=== PATIENT | female | born 1980 | race Caucasian/White ===

== ENCOUNTER 2017-07-06 14:40 | Emergency (ER) | payer OTHER ==
[~2017-07-06] VITALS: Ht 160 cm; Wt 83.9 kg
[~2017-07-06 14:40] MED LIST: BACTRIM DS TAB1 EACH PO; NAPROSYN500 MG PO; NOHOMEMEDICATIONS; NORCO 5-325 TA1 EACH PO; PENICILLIN VK500 M1 PO; ULTRAM 50MG TAB50 MG PO
[2017-07-06 15:15] LABS: URINE BILIRUBIN NEGATIVE (Negative); URINE BLOOD NEGATIVE (Negative); URINE COLOR YELLOW; URINE GLUCOSE-RANDOM* NEGATIVE (Negative); URINE KETONES NEGATIVE (Negative); URINE LEUKOCYTES-REFLEX NEGATIVE (Negative); URINE PROTEIN (DIPSTICK) NEGATIVE (Negative); URINE SPECIFIC GRAVITY <= 1.005 (1.005-1.035); URINE UROBILINOGEN 0.2 E.U./dl (0.2-1.0)
[2017-07-06 15:40] LABS: ABSOLUTE NEUTROPHILS 9.3 thou/uL (1.4-8.2); BASOPHILS 0.2 % (0.0-2.0); EOSINOPHILS 0.7 % (0.0-3.0); HEMATOCRIT 37.9 % (37.0-47.0); HEMOGLOBIN 13.2 gm/dL (12.0-15.0); LYMPHOCYTES 11.9 % (24.0-44.0); MCH 30.3 pg (26.0-34.0); MCHC 34.7 g/dL (28.0-37.0); MCV 87.3 fL (80.0-100.0); MONOCYTES 8.2 % (1.0-8.0); PLATELET COUNT 200 thou/uL (150-400); RBC 4.34 mil/uL (4.20-5.00); RDW 12.4 % (10.5-14.5); WBC 11.7 thou/uL (4.0-11.0)
[2017-07-06 15:41] LABS: MANUAL DIFF NO
[2017-07-06 15:48] LABS: CALCIUM 9.6 mg/dL (8.5-10.1); CREATININE 0.5 mg/dL (0.6-1.0)
[2017-07-06] MEDS ORDERED: BACTRIM DS TAB1 EACH PO (16:18)
[2017-07-06 17:50] VITALS: BP 98/72
== END 2017-07-06 17:55 | disposition home or self-care (01) ==
LOC: ER 14:40
PROVIDERS: Emergency Medicine
DX: L05.01 Pilonidal cyst with abscess (principal); L03.317 Cellulitis of buttock; J45.909 Unspecified asthma, uncomplicated; G43.909 Migraine, unspecified, not intractable, without status migrainosus; F17.210 Nicotine dependence, cigarettes, uncomplicated; Z90.49 Acquired absence of other specified parts of digestive tract; Z90.89 Acquired absence of other organs

== ENCOUNTER 2017-07-09 16:13 | Emergency (ER) | payer BC, OTHER ==
[~2017-07-09] VITALS: Ht 160 cm; Wt 83.9 kg
[2017-07-09] MEDS ORDERED: NORCO 5-325 TA1 EACH PO (17:45)
[2017-07-09] MEDS ORDERED: IBUPROFEN 600600 M1 PO (17:45)
[2018-03-09] MEDS ORDERED: PHENAZOPYRIDIN200 M2 PO (13:38)
[2018-03-09] MEDS ORDERED: NORCO 5-325 TA1 EACH PO (13:38)
== END 2017-07-09 18:18 | disposition home or self-care (01) ==
LOC: ER 16:13
DX: L02.31 Cutaneous abscess of buttock (principal); J45.909 Unspecified asthma, uncomplicated; G43.909 Migraine, unspecified, not intractable, without status migrainosus; Z90.49 Acquired absence of other specified parts of digestive tract; Z90.89 Acquired absence of other organs; Z88.5 Allergy status to narcotic agent; Z88.0 Allergy status to penicillin

== ENCOUNTER 2018-11-08 13:30 | Emergency (ER) | payer BC, OTHER ==
[~2018-11-08] VITALS: Ht 157.5 cm; Wt 81.7 kg
[~2018-11-08 13:30] MED LIST changes: +IBUPROFEN 600600 M1 PO; +PHENAZOPYRIDIN200 M2 PO
[2018-11-08 14:07] LABS: ABSOLUTE NEUTROPHILS 4.9 thou/uL (1.4-8.2); BASOPHILS 0.6 % (0.0-2.0); EOSINOPHILS 0.6 % (0.0-3.0); HEMATOCRIT 39.2 % (37.0-47.0); HEMOGLOBIN 13.6 gm/dL (12.0-15.0); LYMPHOCYTES 21.5 % (24.0-44.0); MCH 30.3 pg (26.0-34.0); MCHC 34.8 g/dL (28.0-37.0); MCV 87.2 fL (80.0-100.0); MONOCYTES 8.1 % (1.0-8.0); PLATELET COUNT 233 thou/uL (150-400); POLYS 69.2 % (36.0-66.0); RBC 4.49 mil/uL (4.20-5.00); RDW 12.5 % (10.5-14.5)
[2018-11-08 14:07] LABS: URINE BILIRUBIN NEGATIVE (Negative); URINE BLOOD NEGATIVE (Negative); URINE CLARITY CLEAR; URINE COLOR YELLOW; URINE GLUCOSE-RANDOM* NEGATIVE (Negative); URINE KETONES NEGATIVE (Negative); URINE LEUKOCYTES NEGATIVE (Negative); URINE NITRITE NEGATIVE (Negative); URINE PROTEIN (DIPSTICK) NEGATIVE (Negative); URINE SPECIFIC GRAVITY 1.015 (1.005-1.035)
[2018-11-08 14:14] LABS: CALCIUM 9.6 mg/dL (8.5-10.1); CREATININE 0.7 mg/dL (0.6-1.0); POTASSIUM 3.5 mmol/L (3.5-5.1)
[2018-11-08 14:20] LABS: ALBUMIN 4.3 g/dL (3.4-5.0); TOTAL BILIRUBIN 0.4 mg/dL (<0.1-1.0); TOTAL PROTEIN 8.4 g/dL (6.4-8.2)
[2018-11-08 15:36] VITALS: BP 128/70
[2018-11-08] MEDS ORDERED: TORADOL 10 MG T10 MG PO (15:44)
[2018-11-08] MEDS ORDERED: NORCO 5-325 TA1 EACH PO (15:44)
== END 2018-11-08 15:36 | disposition home or self-care (01) ==
LOC: ER 13:30
PROVIDERS: Emergency Medicine; Physician Assistant
DX: R10.30 Lower abdominal pain, unspecified (principal); R10.2 Pelvic and perineal pain; F17.210 Nicotine dependence, cigarettes, uncomplicated; J45.909 Unspecified asthma, uncomplicated; G43.909 Migraine, unspecified, not intractable, without status migrainosus; Z88.5 Allergy status to narcotic agent; Z88.0 Allergy status to penicillin; Z90.49 Acquired absence of other specified parts of digestive tract; Z90.89 Acquired absence of other organs; Z87.442 Personal history of urinary calculi

== ENCOUNTER 2019-01-25 08:51 | Emergency (ER) | payer OTHER ==
[~2019-01-25] VITALS: Ht 157.5 cm; Wt 83.0 kg
[~2019-01-25 08:51] MED LIST changes: +TORADOL 10 MG T10 MG PO
[2019-01-25 11:00] LABS: ABSOLUTE NEUTROPHILS 2.9 thou/uL (1.4-8.2); BASOPHILS 0.8 % (0.0-2.0); EOSINOPHILS 1.3 % (0.0-3.0); HEMATOCRIT 39.2 % (37.0-47.0); HEMOGLOBIN 13.4 gm/dL (12.0-15.0); LYMPHOCYTES 22.5 % (24.0-44.0); MCH 29.7 pg (26.0-34.0); MCHC 34.3 g/dL (28.0-37.0); MCV 86.8 fL (80.0-100.0); MONOCYTES 10.1 % (1.0-8.0); PLATELET COUNT 185 thou/uL (150-400); POLYS 65.3 % (36.0-66.0); RBC 4.51 mil/uL (4.20-5.00); RDW 13.1 % (10.5-14.5); WBC 4.4 thou/uL (4.0-11.0)
[2019-01-25 11:06] LABS: CALCIUM 9.6 mg/dL (8.5-10.1); CREATININE 0.5 mg/dL (0.6-1.0); POTASSIUM 3.5 mmol/L (3.5-5.1)
[2019-01-25] MEDS ORDERED: IBUPROFEN 400400 M2 PO (11:34)
[2019-01-25 12:05] VITALS: BP 107/98
== END 2019-01-25 12:06 | disposition home or self-care (01) ==
LOC: ER 08:51
PROVIDERS: Student in an Organized Health Care Education/Training Program
DX: N83.201 Unspecified ovarian cyst, right side (principal); J45.909 Unspecified asthma, uncomplicated; G43.909 Migraine, unspecified, not intractable, without status migrainosus; F17.210 Nicotine dependence, cigarettes, uncomplicated; Z88.0 Allergy status to penicillin; Z90.49 Acquired absence of other specified parts of digestive tract; Z98.51 Tubal ligation status; Z88.5 Allergy status to narcotic agent

== ENCOUNTER 2019-01-30 12:06 | Emergency (ER) | payer OTHER ==
[~2019-01-30] VITALS: Ht 157.5 cm; Wt 82.1 kg
[~2019-01-30 12:06] MED LIST changes: +IBUPROFEN 400400 M2 PO
[2019-01-30 12:12] VITALS: BP 128/86
[2019-01-30 12:43] LABS: URINE BLOOD 3+ (Negative); URINE CLARITY CLOUDY; URINE COLOR YELLOW; URINE GLUCOSE-RANDOM* NEGATIVE (Negative); URINE KETONES 2+ (Negative); URINE LEUKOCYTES-REFLEX NEGATIVE (Negative); URINE NITRITE-REFLEX NEGATIVE (Negative); URINE PROTEIN (DIPSTICK) 1+ (Negative); URINE SPECIFIC GRAVITY >= 1.030 (1.005-1.035)
[2019-01-30 12:51] LABS: ICTOTEST (BILI CONFIRMATORY) Negative (Negative); SQUAMOUS 0-3 Few /LPF (0-3); URINE BILIRUBIN NEGATIVE (Negative)
[2019-01-30 12:52] LABS: CASTS None Seen /LPF (None Seen); CRYSTALS None Seen /LPF (None Seen); URINE RBC >20 Many /HPF (0-2); URINE WBC-REFLEX 6-15 Few /HPF (0-5)
[2019-01-30] MEDS ORDERED: MACROBID 100 M100 M1 PO (13:20)
== END 2019-01-30 13:10 | disposition home or self-care (01) ==
LOC: ER 12:06
PROVIDERS: Emergency Medicine
DX: N39.0 Urinary tract infection, site not specified (principal); F17.210 Nicotine dependence, cigarettes, uncomplicated; J45.909 Unspecified asthma, uncomplicated; G43.909 Migraine, unspecified, not intractable, without status migrainosus; Z88.5 Allergy status to narcotic agent; Z88.0 Allergy status to penicillin; Z90.49 Acquired absence of other specified parts of digestive tract; Z90.89 Acquired absence of other organs

== ENCOUNTER 2019-03-01 14:43 | Emergency (ER) | payer OTHER ==
[~2019-03-01] VITALS: Ht 157.5 cm; Wt 78.5 kg
[~2019-03-01 14:43] MED LIST changes: +MACROBID 100 M100 M1 PO
[2019-03-01] MEDS ORDERED: EMVERM100 MG PO (15:49)
[2019-03-01 15:53] VITALS: BP 131/82
== END 2019-03-01 15:54 | disposition home or self-care (01) ==
LOC: ER 14:43
DX: B80 Enterobiasis (principal); J45.909 Unspecified asthma, uncomplicated; G43.909 Migraine, unspecified, not intractable, without status migrainosus; F17.210 Nicotine dependence, cigarettes, uncomplicated; Z88.5 Allergy status to narcotic agent; Z88.0 Allergy status to penicillin; Z90.49 Acquired absence of other specified parts of digestive tract